=== PATIENT | male | born 1940 | race Caucasian/White ===

== ENCOUNTER 2016-08-21 17:28 | Inpatient (IN) | payer OTHER ==
--- NOTE | ~2016-08-21 | CN ---
Consultation Report [facility] [address] [place]. [address] NAME: STEPHANIE HANKINS : 39 STATUS : ADM IN PAT#: [id number] AGE: 75 ADM/REG DATE : 08/21/16 MR#: [id number] REPORT SERV DATE: 08/25/16 DICTATED BY: CRISTIN ARENAS DATE: 08/25/16 REPORT STATUS : Draft TRANSCRIBED BY: HEIDI DATE: 08/25/16 DATE OF CONSULTATION: Dear Dr. Meneses: Thank you for requesting my opinion regarding evaluation and management of Mr. Stephanie Hankins's shortness of breath and acute exacerbation of COPD. Mr. 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 The patient was recently underwent an echocardiogram that demonstrated stable EF of approximately 45%. He has been aggressively diuresed without any significant improvement in his shortness of breath. He has been treated with Maxipime, bronchodilators, and steroids. The patient reports modest improvement in his shortness of breath. He now characterized it as mild in nature, well localized to the chest, nonradiating with no significant alleviating or exacerbating factors. He firmly denies any chest pain, palpitations, nausea, vomiting, diarrhea, or constipation. PAST MEDICAL HISTORY: 1. COPD, home O2 dependent, 2 L nasal cannula. 2. Mpl-lrke-vbgs smoking history, remote. 3. 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 4. Coronary artery disease, status post CABG. 5. Diabetes. 6. Hypothyroidism. 7. Hypertension. PAST SURGICAL HISTORY: 1. As above. 2. Coronary artery bypass graft surgery. 3. Cholecystectomy. ALLERGIES: COUMADIN - NAUSEA. HOME MEDICATIONS: Reviewed and located in the paper chart. FAMILY HISTORY: Cardiac issues. SOCIAL HISTORY: The patient is a minimal smoker, quit at the age of 15 for approximately ten pack years. He denies any significant alcohol or illicit drug abuse. REVIEW OF SYSTEMS: A detailed 14-point review of systems was completed. Pertinent positives and negatives are Consultation Report [facility] [address] [place] [place]. [address] NAME: STEPHANIE HANKINS : 39 STATUS : ADM IN PAT#: [id number] AGE: 75 ADM/REG DATE : 08/21/16 MR#: [id number] REPORT SERV DATE: 08/25/16 DICTATED BY: CRISTIN ARENAS DATE: 08/25/16 REPORT STATUS : Draft TRANSCRIBED BY: MODL DATE: 08/25/16 listed above. PHYSICAL EXAMINATION: VITAL SIGNS: Afebrile, T-current 97.7, pulse of 84, respiratory rate of 16, 10 L nasal cannula of 93%, blood pressure 142/68, I's and O's demonstrates -2.4636 L. LABS: Demonstrate a white count of 7.8, hemoglobin of 11, platelet count of 116. Procalcitonin of 0.18, creatinine of 1.47. Negative urine Legionella. Sputum culture demonstrates an inadequate sample. IMAGING: Chest x-ray performed on 08/24/2016 was personally reviewed by me and I agree with the following interpretation. Cardiomegaly, bibasilar atelectasis, venous congestion is markedly improved. ASSESSMENT AND PLAN: Mr. 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 The patient has been aggressively diuresed and is stagnated requiring high levels of FiO2, now currently on 10 L nasal cannula. I have been asked to help optimize his pulmonary status. The clinical and radiographic presentation is most consistent with multifactorial shortness of breath due to the followin. Acute exacerbation of chronic obstructive pulmonary disease. 2. 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 3. Troponin leak likely due to demand ischemia, current EF of approximately 45%. 4. Acute systolic heart failure. RECOMMENDATIONS: A summary of my recommendations are as follows: 1. Continue aggressive diuresis. 2. Change bronchodilators to Brovana, Pulmicort, and DuoNeb as scheduled and p.r.n. 3. CT scan of the chest to better elucidate the underlying causes of shortness of breath. 4. Further recommendations to follow pending CT scan. 5. Plan was discussed with Dr. Meneses and Dr. Melgoza, is covering for Dr. Ortiz. Thank you for allowing me to participate in Mr. Hankins's care. EDUARDO/HEIDI Crsitin Arenas M.D. Consultation Report [address] [place]. [address] NAME: STEPHANIE HANKINS : 39 STATUS : ADM IN PAT#: [id number] AGE: 75 ADM/REG DATE : 08/21/16 MR#: [id number] REPORT SERV DATE: 08/25/16 DICTATED BY: CRISTIN ARENAS DATE: 08/25/16 REPORT STATUS : Draft TRANSCRIBED BY: HEIDI DATE: 08/25/16 / [id number] CC: Yahir Meneses M.D.
--- NOTE | ~2016-08-21 | DS ---
Discharge Summary [facility] [address] [facility] [place]. [address] NAME: STEPHANIE YEE : 39 STATUS : ADM IN [facility]#: [id number] AGE: 75 ADM/REG DATE : 08/21/16 MR#: [id number] REPORT SERV DATE: 08/27/16 DICTATED BY: ARNAUD WHARTON DATE: 08/27/16 REPORT STATUS : Draft TRANSCRIBED BY: MODL DATE: 08/27/16 ADMISSION DATE: 08/21/2016 DISCHARGE DATE: CURRENT HOSPITAL DIAGNOSES: 1. Pneumonia, resolving. 2. Chronic obstructive pulmonary disease. 3. History of coronary artery disease, atrial flutter, and congestive heart failure with acute on chronic systolic congestive heart failure. 4. Diabetes mellitus. CONSULTATIONS: Dr. Arredondo, Pulmonary and Dr. Melgoza, Cardiology. PROCEDURES: Echocardiogram showing mild mitral annular calcification, mild mitral insufficiency, left ventricular function showing hypokinesis, anterior and septal negron. Function is EF 55%. CURRENT PHYSICAL FINDINGS AND HPI: Please see dictated H and P by myself. In brief, the patient is a very pleasant 75-year-old male with above medical history, presented as referral from outside facility for pneumonia, elevated BNP, and increasing oxygen demand. Initial vital signs, BP was 142/91, temperature was 97.7, and he has remained afebrile through his hospital stay. Heart rates have been in the 70s and sinus rhythm. Oxygen requirements have been anywhere from 4-10 L. LABORATORY DATA: Initial BMP showed a creatinine of 1.69, creatinines have been averaging approximately 1.3 to 1.5 with diuresis. Initial troponin was 0.07, 0.07, and 0.10. TSH was normal at 2.6. A1c was 7.5. Initial BNP from outside facility was over 1000, repeat here was 657, and most recently 191. No leukocytosis was noted and his procalcitonin was 0.18. White count was 7.8. Strep pneumo was negative. Legionella was negative. Sputum is normal yanna to date. Blood cultures are negative to date. Initial chest x-ray done here on the , showed CHF pattern with followup on the showing improvement of the venous congestion. HOSPITAL COURSE: The patient was admitted and started on supplemental O2 breathing treatments, home medications, and antibiotics specifically Levaquin IV. He is placed on sliding scale. He was started on IV steroids, and serial troponins were followed. The patient initially was improving on that treatment regimen with the addition of IV diuretics and was maintaining his oxygen saturations on approximately 4 L. He then had acute increase in his oxygen demands, although he was relatively asymptomatic, and they were titrated up to 10 L. He was placed back on IV diuretics, IV steroids. His antibiotics were broadened to cefepime. Repeat procalcitonin and BNP were checked, and when he continued to maintain high oxygen requirements, Pulmonary was consulted. Several slight adjustments to his medications were made. He has been titrated down to 7 L at present. With his elevated troponin and history of CHF, echocardiogram was ordered and Cardiology was consulted. No new recommendations. The patient has remained asymptomatic and has not had chest pain. His current disposition, we will decrease his diuretics this evening putting him back on his Discharge Summary [address] [address] NAME: STEPHANIE YEE : 39 STATUS : ADM IN [facility]#: [id number] AGE: 75 ADM/REG DATE : 08/21/16 MR#: [id number] REPORT SERV DATE: 08/27/16 DICTATED BY: ARNAUD WHARTON DATE: 08/27/16 REPORT STATUS : Draft TRANSCRIBED BY: MODL DATE: 08/27/16 p.o. dose of diuretics as his creatinine has risen to 1.28 and his BUN 71, his BNP is down to 191, and last chest x-ray did show improved failure. Will continue to ambulate. We will continue to titrate his insulin to his steroids. He may be a candidate for V/Q scan as recommended by Dr. Marcial if his O2 requirements do not decrease. DICTATED BY: Maria Elena Leonardo/HEIDI Arnaud Wharton M.D. / [id number] CC: Arnaud Wharton M.D.
--- NOTE | ~2016-08-21 | CN ---
Consultation Report [facility] [address] [place]. [address] NAME: STEPHANIE YEE : 39 STATUS : ADM IN [facility]#: [id number] AGE: 75 ADM/REG DATE : 08/21/16 MR#: [id number] REPORT SERV DATE: 08/25/16 DICTATED BY: JONI MELGOZA DATE: 08/25/16 REPORT STATUS : Draft TRANSCRIBED BY: MODL DATE: 08/25/16 CARDIOLOGY CONSULTATION DATE OF CONSULTATION: HISTORY OF PRESENT ILLNESS: The patient is a 75-year-old white male, who is status post coronary artery bypass surgery about eight years ago. He had a cardiac catheterization by Dr. Ortiz on 09/12/2015 that showed patent grafts. Echocardiogram done today shows left ventricular ejection fraction of approximately 45% (not much changed from previous study). The patient presented to [facility] complaining of increased shortness of breath and a productive cough over the past week. He was subsequently transferred to [facility]. PAST MEDICAL HISTORY: Remarkable for coronary artery disease, COPD, type 2 diabetes, hypothyroidism, and atrial flutter. 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 FAMILY HISTORY: Negative for coronary artery disease. REVIEW OF SYSTEMS: The patient has cough productive of yellow sputum. He is not having any nausea, vomiting, diarrhea, or dysuria. PHYSICAL EXAMINATION: GENERAL: The patient is comfortable, in no acute distress. HEENT: Unremarkable. NECK: Shows no jugular venous distention with good carotid upstroke. CHEST: Clear. CARDIOVASCULAR: The PMI is just lateral to mid clavicular line. S1 is normal. S2 is narrowly split. 1/6 systolic murmur is present over the aortic area. No gallop is heard. ABDOMEN: Soft, nontender with normal bowel sounds. EXTREMITIES: Show no cyanosis, clubbing, or edema. SKIN: Warm and dry with no pallor or icterus. NEURO/PSYCH: The patient is oriented x3 with appropriate affect. IMPRESSION: 1. Stable cardiac status with hzlg-gc-snnffqoy decrease in left ventricular systolic function and patent grafts on cardiac catheterization done 09/12/2015. 2. Chronic obstructive pulmonary disease. 3. Type 2 diabetes. 4. History of paroxysmal atrial fibrillation. PLAN: 1. Continue present medications. Consultation Report [facility] [address]. [address] NAME: STEPHANIE YEE : 39 STATUS : ADM IN PAT#: [id number] AGE: 75 ADM/REG DATE : 08/21/16 MR#: [id number] REPORT SERV DATE: 08/25/16 DICTATED BY: JONI MELGOZA DATE: 08/25/16 REPORT STATUS : Draft TRANSCRIBED BY: MODL DATE: 08/25/16 2. We will follow. Thank you very much for this consultation. SS/EHIDI Joni Melgoza M.D., F.A.C.C. / [id number] CC: Yahir Meneses M.D.
--- NOTE | ~2016-08-21 | HP ---
History And Physical [place] [id number] [place]. [address] NAME: STEPHANIE YEE : 39 STATUS : ADM IN PAT#: [id number] AGE: 75 ADM/REG DATE : 08/21/16 MR#: [id number] REPORT SERV DATE: 08/21/16 DICTATED BY: YAHIR WHARTON DATE: 08/21/16 REPORT STATUS : Draft TRANSCRIBED BY: MODL DATE: 08/21/16 DATE OF ADMISSION: 08/21/2016 CHIEF COMPLAINT: COPD exacerbation. HISTORY OF PRESENT ILLNESS: The patient is a 75-year-old male. He has a past medical history significant for COPD, O2 dependent, usually 2 L, very remote minimal smoking history. His COPD risk factor appears to be occupation. 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 He also has history of coronary artery disease, status post CABG. Records review here states that he had atrial flutter in the past and was on oral anticoagulants. They are not listed on his home medications or current. He also has had a repeat heart catheterization in 08/2015 which showed widely patent grafts. He had an echo showing an EF of 40% back in 04/2014. He reports history of diabetes. States he normally manages with injections, again, not on his home list. He states he has hypothyroidism, it is noted he is on a thyroid replacement and he has hypertension. His current complaint is increasing shortness of breath over the past two to three days associated with cough, productive white mostly to yellow phlegm, fever at home which is not recurrent here. He was initially evaluated at [facility] and requested admission here with diagnosis of community-acquired pneumonia and COPD exacerbation. Currently, his sats are 94% on 4 L and his vital signs are stable. He reports no nausea or vomiting. He reports no chest pain or palpitation or anything that would suggest his problems rather than pulmonary this evening. PAST MEDICAL HISTORY: As covered above. PAST SURGICAL HISTORY: He states he has had a CABG and a cholecystectomy. CURRENT MEDICATIONS: Per [facility] list, Coreg 6.25 b.i.d., potassium 10 b.i.d., Entresto 49/59 b.i.d., allopurinol 300, aspirin 81, Bumex 1 b.i.d., digoxin 0.125, levothyroxine 0.88, Cardizem 180, isosorbide 60, and Zocor 10. Again, I do not see an anticoagulant or an insulin on this list. ALLERGIES: TO COUMADIN THAT CAUSED HIM NAUSEA. FAMILY HISTORY: Both parents ; father with cardiac problems, mother was killed in a flood. SOCIAL HISTORY: He was a minimal smoker, quit at age 15. No EtOH. REVIEW OF SYSTEMS: HEENT: No complaints. CARDIOVASCULAR: No chest pain, angina, palpitations, or syncope. PULMONARY: As covered in HPI. GI: No nausea, vomiting, or diarrhea. : No dysuria, frequency, or urgency. NEURO/MUSCULOSKELETAL: No myalgias. Neurological exam, no complaints. History And Physical [address] [address] NAME: STEPHANIE YEE : 39 STATUS : ADM IN [facility]#: [id number] AGE: 75 ADM/REG DATE : 08/21/16 MR#: [id number] REPORT SERV DATE: 08/21/16 DICTATED BY: YAHIR WHARTON DATE: 08/21/16 REPORT STATUS : Draft TRANSCRIBED BY: HEIDI DATE: 08/21/16 Otherwise, 10-point review of systems is negative. PHYSICAL EXAMINATION: VITAL SIGNS: BP 142/91, sat 94% on 4 L, heart rate 87, temp is pending. GENERAL: He is awake, alert, and oriented. HEENT: Normocephalic, atraumatic. Sclerae nonicteric. NECK: Supple. HEART: Regular rate and rhythm. LUNGS: Show some rhonchi in the left base but positive air movement, some expiratory wheezing. He does not appear in any acute distress. ABDOMEN: Nontender, nondistended. EXTREMITIES: Trace to 1+ edema. NEUROLOGIC: Grossly intact. LABORATORY DATA: As reviewed from [facility], chest x-ray was read as left lower lobe infiltrate, cardiomegaly with mild pulmonary vascular congestion. Digoxin 0.3. Sodium 135, potassium 4.5, chloride 109, CO2 of 17, BUN and creatinine are 35 and 1.5, glucose 180. White count 7.2, H and H 12.6 and 38.8, platelets 127. Lactic acid 1.5. Troponin 0.04. EKG shows no acute ischemic changes; sinus rhythm. BNP was 2390. ASSESSMENT: 1. Pneumonia. 2. Chronic obstructive pulmonary disease exacerbation. 3. Chronic medical problems including diabetes, cardiac. PLAN: 1. The patient has been admitted. 2. Review his home medications when Pharmacy completes. 3. Sliding scale for his insulin cover. 4. Antibiotics, nebulizers, and steroids. 5. Mild diuresis. 6. Further recommendations pending above. TLF/MODL Yahir Wharton M.D. / [id number] CC: Yahir Wharton M.D.
--- NOTE | ~2016-08-21 | DS ---
Discharge Summary [facility] [address] [place]. [address] NAME: STEPHANIE YEE : 39 STATUS : DIS IN PAT#: [id number] AGE: 75 ADM/REG DATE : 08/21/16 MR#: [id number] REPORT SERV DATE: 09/02/16 DICTATED BY: NAIMA COLLAZO DATE: 09/01/16 REPORT STATUS : Draft TRANSCRIBED BY: MODL DATE: 09/01/16 ADMISSION DATE: 08/21/2016 DISCHARGE DATE: 09/01/2016 DISCHARGE DIAGNOSES: 1. Pneumonia. 2. Chronic obstructive pulmonary disease exacerbation. 3. Coronary artery disease with atrial flutter, congestive heart failure, acute on chronic systolic heart failure. 4. Diabetes type 2. 5. Acute on chronic hypoxic respiratory failure. 6. Atrial fibrillation, on beta-pearl, calcium channel pearl and digoxin. No anticoagulation candidate due to fall history per prior notes. 7. Hypothyroidism. CONSULTATIONS: Dr. Melgoza and Dr. Arredondo. Please see H and P for complete details of HPI and initial discharge summary on 08/27/[address] Meneses. The patient was actually discharged on 09/01/2016, as the patient had acute change in respiratory status requiring increased O2 requirements on the . Briefly, the patient is a very pleasant 75-year-old male, O2 dependent on 2 L by nasal cannula at home, who presented after having acute COPD exacerbation, pneumonia and what appeared to be volume overload with heart failure exacerbation. The patient was treated supportively for acute COPD vascular exacerbation with steroids, DuoNebs, O2, and was aggressively diuresed but had variable O2 requirements up to 10 L at times. BMP did show improvement after patient was improved on respiratory status or on volume status. The patient was evaluated by Cardiology. Pulmonary also recommended V/Q scan which was low probability. An ultrasound of the lower extremities was also performed, which was negative due to patient's repeat increased O2 requirements. The patient has had serial chest x-rays with fibrotic lung disease consideration prompting CT without contrast, which showed areas of minimal interstitial infiltrate primarily in the peripheral lung superimposed with previous reticular fibrotic opacity. No focal consolidations, granulomatous calcifications, prior CABG history. The patient was also monitored closely with blood sugars, as the patient was being weaned off the steroids did have elevations in blood sugars, but these were also improved with weaning of blood sugars to the point where the patient was also even on his home dose insulin was having lows with diet control. The patient was decreased on home insulin and to be monitored closely with his PCP as well as the patient was educated on diet education. The patient's O2 status remained from 2-4 L. The patient was given ICS flutter valve with technics, had completed antibiotic course while inpatient, fairly euvolemic, and was continued on beta-pearl, aspirin, statin, and Entresto per Cardiology. Was discharged home with family and continued O2 as he was prior with mildly increased requirements varying from 2-4 L. Comfortably walking 200 feet without difficulty while he is on oxygen. Had declined home health that was offered for discharge per Case Management. The patient was discharged home, feeling well and feeling safe, and very eager to go home. All questions have been answered to the patient at bedside. Discharge Summary [address] [place]. [address] NAME: STEPHANIE YEE : 39 STATUS : DIS IN PAT#: [id number] AGE: 75 ADM/REG DATE : 08/21/16 MR#: [id number] REPORT SERV DATE: 09/02/16 DICTATED BY: NAIMA COLLAZO DATE: 09/01/16 REPORT STATUS : Draft TRANSCRIBED BY: HEIDI DATE: 09/01/16 DISCHARGE MEDICATIONS: Include allopurinol 300 mg one tab p.o. daily, aspirin home dose was 325 mg one tab p.o. daily, Bumex 1 mg p.o. b.i.d., Coreg 6.25 mg one tab p.o. b.i.d., digoxin 0.125 mg one tab p.o. daily, Cardizem 180 mg one tab p.o. daily. The patient's home sliding scale insulin was resumed. Lantus was decreased from 40 units at bedtime to 25 units, followup PCP before restarting regular dose. Imdur 60 mg one tab p.o. daily, Xalatan one drop ophthalmic b.i.d. eyes, levothyroxine 88 mcg p.o. daily, Entresto one tab p.o. b.i.d., Zocor 10 mg one tab p.o. at bedtime, Pulmicort two puffs inhalation, Anoro Ellipta one inhalation daily, Zanaflex home dose 2 mg p.o. b.i.d. p.r.n. muscle spasm, [place] 7.5/325 one tab p.o. q.12 hours p.r.n. pain, ProAir one puff inhalation every 4 hours for pain, nebulizers home dose solutions, KCl decreased to 10 mEq daily. The patient to followup with PCP in one week for diabetes, COPD. Followup chest x-ray for pneumonia. Additionally, followup with Dr. Jeffrey, Pulmonology in one month. Followup with Dr. Melgoza in four to six weeks. Thank for allowing us to assist in the care of this patient. DICTATED BY: MD ISHA Levy/HEIDI Naima Collazo MD / [id number] CC: Naima Collazo MD
[~2016-08-21 17:28] MED LIST: ASA5GR PO; CENTRUM TAB1 TAB PO; ELIQUIS 5 MG TAB5 MG PO; GLUCOPHAGE1000 MG PO; L40 PO; NORCO1 TAB PO; NOVOLOG SQ; PRIN20 PO; PROVENTSOL INH; ZANTAC300 MG PO
[2016-08-21 20:36] LABS: TROPONIN I 0.07 NG/ML (<0.05); ULTRASENSITIVE TSH 2.63 MCIU/ML (0.358-3.740)
[2016-08-21 21:25] LABS: PROCALCITONIN 0.41 ng/mL (<0.5)
[2016-08-21] MEDS ORDERED: ASABAYER PO (21:40)
[2016-08-21] MEDS ORDERED: *UNABLE1 (21:41)
[2016-08-21] MEDS ORDERED: COREG6 PO (22:26)
[2016-08-21] MEDS ORDERED: Z300 PO (22:26)
[2016-08-21] MEDS ORDERED: LAN125 PO (22:27)
[2016-08-21] MEDS ORDERED: KLOR-CON 1010 MEQ PO (22:27)
[2016-08-21] MEDS ORDERED: LEVOTHYROXIN88 MCG PO (22:28)
[2016-08-21] MEDS ORDERED: SACU1TAB7 PO (22:29)
[2016-08-21] MEDS ORDERED: ZOCOR10 PO (22:30)
[2016-08-21] MEDS ORDERED: CARDCD180 PO (22:30)
[2016-08-21] MEDS ORDERED: BUM1 PO (22:30)
[2016-08-21] MEDS ORDERED: IMDUR60 PO (22:30)
[2016-08-21] MEDS ORDERED: LANTUS SC (22:41)
[2016-08-21] MEDS ORDERED: NOVOLOG SC (22:41)
[2016-08-22 01:38] LABS: CALCIUM, SERUM 8.5 MG/DL (8.5-10.4); CHLORIDE, SERUM 112 MMOL/L (96-112); CO2 (CARBON DIOXIDE) 21 MMOL/L (24-34); CREATININE 1.69 MG/DL (0.70-1.30); GFR AFRICAN AMERICAN 45 ML/MIN (>=60); GFR NON AFRICAN AMERICAN 39 ML/MIN (>=60); POTASSIUM, SERUM 5.3 MMOL/L (3.5-5.3); SODIUM, SERUM 141 MMOL/L (135-148)
[2016-08-22 01:45] LABS: BUN (BLOOD UREA NITROGEN) 38 MG/DL (6-23); GLUCOSE, SERUM 366 MG/DL (60-99)
[2016-08-22] MEDS ORDERED: [UNRECOGNIZED DRUG - OTHER] (11:13)
[2016-08-22] MEDS ORDERED: [UNRECOGNIZED DRUG - OTHER] (11:13)
[2016-08-22] MEDS ORDERED: COREG6 PO (11:14)
[2016-08-22] MEDS ORDERED: PROAIR HFA INH (11:14)
[2016-08-22] MEDS ORDERED: ANOROELLIPTA INH (11:14)
[2016-08-22] MEDS ORDERED: BUM1 PO (11:14)
[2016-08-22] MEDS ORDERED: NOVOLOG SC (11:15)
[2016-08-22] MEDS ORDERED: Z300 PO (11:15)
[2016-08-22] MEDS ORDERED: PULMICORT180 MCG INH (11:15)
[2016-08-22] MEDS ORDERED: CARDCD180 PO (11:16)
[2016-08-22] MEDS ORDERED: NORCO1 TA2 PO (11:16)
[2016-08-22] MEDS ORDERED: K-TABS10 MEQ PO (11:16)
[2016-08-22] MEDS ORDERED: LAN125 PO (11:17)
[2016-08-22] MEDS ORDERED: XALAT OPH (11:17)
[2016-08-22] MEDS ORDERED: ZANAFLEX2 MG PO (11:17)
[2016-08-22] MEDS ORDERED: SACU1TAB4 PO (11:17)
[2016-08-22] MEDS ORDERED: LEVOTHYROXIN88 MCG PO (11:18)
[2016-08-22] MEDS ORDERED: ASABAYER PO (11:18)
[2016-08-22] MEDS ORDERED: ZOCOR10 PO (11:18)
[2016-08-22] MEDS ORDERED: IMDUR60 PO (11:18)
[2016-08-22] MEDS ORDERED: LANTUS SC (11:18)
[2016-08-23 05:04] LABS: BASOPHILS 0 %; EOSINOPHILS 0 %; HEMOGLOBIN 11.5 g/dL (13.6-17.8); IMMATURE GRANULOCYTES 0.3 %; IMMATURE GRANULOCYTES ABSOLUTE 0.02 10/3/uL (0.0-0.11); LYMPHOCYTES 4.3 %; LYMPHOCYTES ABSOLUTE 0.34 10/3/uL (0.67-4.30); MEAN CORPUSCULAR HEMOGLOB 34.2 pg (26.0-34.0); MEAN PLATELET VOLUME 10.4 fL (9.2-13.0); MONOCYTES 2.2 %; MONOCYTES ABSOLUTE 0.17 10/3/uL (0.21-1.20); NEUTROPHILS 93.2 %; NEUTROPHILS ABSOLUTE 7.29 10/3/uL (2.02-8.40); PLATELET COUNT 116 10/3/uL (150-400); RBC DISTRIBUTION WIDTH 15.3 % (12.0-16.0); WHITE BLOOD CELLS 7.8 10/3/uL (4.5-10.5)
[2016-08-23 05:07] LABS: HEMATOCRIT 34.9 % (40.0-51.0); MANUAL DIFF NO %; MEAN CORPUSCULAR VOLUME 103.9 fL (80-100); RED CELL COUNT 3.36 10/6/uL (4.7-6.1)
[2016-08-23 05:15] LABS: BUN (BLOOD UREA NITROGEN) 48 MG/DL (6-23); CALCIUM, SERUM 8.9 MG/DL (8.5-10.4); CHLORIDE, SERUM 113 MMOL/L (96-112); CO2 (CARBON DIOXIDE) 19 MMOL/L (24-34); CREATININE 1.47 MG/DL (0.70-1.30); GFR AFRICAN AMERICAN 53 ML/MIN (>=60); GFR NON AFRICAN AMERICAN 46 ML/MIN (>=60); GLUCOSE, SERUM 252 MG/DL (60-99); POTASSIUM, SERUM 5.4 MMOL/L (3.5-5.3); SODIUM, SERUM 141 MMOL/L (135-148)
[2016-08-24 06:24] LABS: CALCIUM, SERUM 8.4 MG/DL (8.5-10.4); CHLORIDE, SERUM 111 MMOL/L (96-112); CREATININE 1.53 MG/DL (0.70-1.30); GFR AFRICAN AMERICAN 50 ML/MIN (>=60); GFR NON AFRICAN AMERICAN 44 ML/MIN (>=60); POTASSIUM, SERUM 4.6 MMOL/L (3.5-5.3); SODIUM, SERUM 140 MMOL/L (135-148)
[2016-08-24 06:25] LABS: BUN (BLOOD UREA NITROGEN) 59 MG/DL (6-23); CO2 (CARBON DIOXIDE) 24 MMOL/L (24-34); GLUCOSE, SERUM 142 MG/DL (60-99)
[2016-08-24 14:04] LABS: TROPONIN I 0.1 NG/ML (<0.05)
[2016-08-24 14:25] LABS: PROCALCITONIN 0.18 ng/mL (<0.5)
[2016-08-25 06:56] LABS: CALCIUM, SERUM 8.7 MG/DL (8.5-10.4); CHLORIDE, SERUM 106 MMOL/L (96-112); CO2 (CARBON DIOXIDE) 22 MMOL/L (24-34); CREATININE 1.47 MG/DL (0.70-1.30); GFR AFRICAN AMERICAN 53 ML/MIN (>=60); GFR NON AFRICAN AMERICAN 46 ML/MIN (>=60); POTASSIUM, SERUM 4.6 MMOL/L (3.5-5.3); SODIUM, SERUM 138 MMOL/L (135-148)
[2016-08-25 06:57] LABS: BUN (BLOOD UREA NITROGEN) 64 MG/DL (6-23); GLUCOSE, SERUM 352 MG/DL (60-99)
[2016-08-27 06:18] LABS: ALBUMIN 2.2 G/DL (3.5-5.0); CALCIUM, SERUM 8.6 MG/DL (8.5-10.4); CHLORIDE, SERUM 111 MMOL/L (96-112); CO2 (CARBON DIOXIDE) 21 MMOL/L (24-34); CREATININE 1.28 MG/DL (0.70-1.30); GFR AFRICAN AMERICAN 63 ML/MIN (>=60); GFR NON AFRICAN AMERICAN 54 ML/MIN (>=60); PHOSPHORUS, SERUM 2.5 MG/DL (2.5-4.5); SODIUM, SERUM 140 MMOL/L (135-148)
[2016-08-27 06:19] LABS: BUN (BLOOD UREA NITROGEN) 71 MG/DL (6-23); GLUCOSE, SERUM 186 MG/DL (60-99)
[2016-08-28 05:20] LABS: BASOPHILS 0 %; EOSINOPHILS 0.8 %; EOSINOPHILS ABSOLUTE 0.06 10/3/uL (0.0-0.53); HEMOGLOBIN 11.9 g/dL (13.6-17.8); IMMATURE GRANULOCYTES 0.7 %; IMMATURE GRANULOCYTES ABSOLUTE 0.05 10/3/uL (0.0-0.11); LYMPHOCYTES 10.2 %; LYMPHOCYTES ABSOLUTE 0.77 10/3/uL (0.67-4.30); MEAN CORPUS HGB CONC 33.1 g/dL (32.0-36.0); MEAN CORPUSCULAR HEMOGLOB 33.4 pg (26.0-34.0); MEAN CORPUSCULAR VOLUME 101.1 fL (80-100); MEAN PLATELET VOLUME 11.6 fL (9.2-13.0); MONOCYTES ABSOLUTE 0.53 10/3/uL (0.21-1.20); NEUTROPHILS 81.3 %; NEUTROPHILS ABSOLUTE 6.16 10/3/uL (2.02-8.40); PLATELET COUNT 145 10/3/uL (150-400); RBC DISTRIBUTION WIDTH 14.9 % (12.0-16.0); RED CELL COUNT 3.56 10/6/uL (4.7-6.1); WHITE BLOOD CELLS 7.6 10/3/uL (4.5-10.5)
[2016-08-28 05:21] LABS: MANUAL DIFF NO %
[2016-08-28 05:32] LABS: BUN (BLOOD UREA NITROGEN) 66 MG/DL (6-23); CALCIUM, SERUM 8.5 MG/DL (8.5-10.4); CHLORIDE, SERUM 107 MMOL/L (96-112); CO2 (CARBON DIOXIDE) 25 MMOL/L (24-34); CREATININE 1.16 MG/DL (0.70-1.30); GFR AFRICAN AMERICAN 71 ML/MIN (>=60); GFR NON AFRICAN AMERICAN 61 ML/MIN (>=60); GLUCOSE, SERUM 195 MG/DL (60-99); POTASSIUM, SERUM 4.1 MMOL/L (3.5-5.3); SODIUM, SERUM 137 MMOL/L (135-148)
[2016-08-29 05:08] LABS: BASOPHILS 0 %; EOSINOPHILS 1.7 %; EOSINOPHILS ABSOLUTE 0.12 10/3/uL (0.0-0.53); HEMATOCRIT 37.2 % (40.0-51.0); HEMOGLOBIN 12.2 g/dL (13.6-17.8); IMMATURE GRANULOCYTES 0.9 %; IMMATURE GRANULOCYTES ABSOLUTE 0.06 10/3/uL (0.0-0.11); LYMPHOCYTES 12.9 %; LYMPHOCYTES ABSOLUTE 0.91 10/3/uL (0.67-4.30); MANUAL DIFF NO %; MEAN CORPUS HGB CONC 32.8 g/dL (32.0-36.0); MEAN CORPUSCULAR HEMOGLOB 33.3 pg (26.0-34.0); MEAN CORPUSCULAR VOLUME 101.6 fL (80-100); MONOCYTES 7.8 %; MONOCYTES ABSOLUTE 0.55 10/3/uL (0.21-1.20); NEUTROPHILS 76.7 %; NEUTROPHILS ABSOLUTE 5.41 10/3/uL (2.02-8.40); PLATELET COUNT 150 10/3/uL (150-400); RBC DISTRIBUTION WIDTH 14.9 % (12.0-16.0); RED CELL COUNT 3.66 10/6/uL (4.7-6.1); WHITE BLOOD CELLS 7.1 10/3/uL (4.5-10.5)
[2016-08-29 05:20] LABS: BUN (BLOOD UREA NITROGEN) 69 MG/DL (6-23); CALCIUM, SERUM 8.4 MG/DL (8.5-10.4); CHLORIDE, SERUM 108 MMOL/L (96-112); CO2 (CARBON DIOXIDE) 26 MMOL/L (24-34); GFR AFRICAN AMERICAN 68 ML/MIN (>=60); GFR NON AFRICAN AMERICAN 58 ML/MIN (>=60); POTASSIUM, SERUM 4.3 MMOL/L (3.5-5.3); SODIUM, SERUM 141 MMOL/L (135-148)
[2016-08-29 05:21] LABS: GLUCOSE, SERUM 139 MG/DL (60-99)
[2016-08-30 06:12] LABS: BASOPHILS 0 %; EOSINOPHILS 1.8 %; EOSINOPHILS ABSOLUTE 0.15 10/3/uL (0.0-0.53); HEMATOCRIT 37.5 % (40.0-51.0); HEMOGLOBIN 12.3 g/dL (13.6-17.8); IMMATURE GRANULOCYTES ABSOLUTE 0.08 10/3/uL (0.0-0.11); LYMPHOCYTES 12.8 %; LYMPHOCYTES ABSOLUTE 1.06 10/3/uL (0.67-4.30); MEAN CORPUS HGB CONC 32.8 g/dL (32.0-36.0); MEAN CORPUSCULAR HEMOGLOB 33.6 pg (26.0-34.0); MEAN CORPUSCULAR VOLUME 102.5 fL (80-100); MEAN PLATELET VOLUME 10.4 fL (9.2-13.0); MONOCYTES 8.1 %; MONOCYTES ABSOLUTE 0.67 10/3/uL (0.21-1.20); NEUTROPHILS 76.3 %; NEUTROPHILS ABSOLUTE 6.29 10/3/uL (2.02-8.40); PLATELET COUNT 143 10/3/uL (150-400); RED CELL COUNT 3.66 10/6/uL (4.7-6.1); WHITE BLOOD CELLS 8.3 10/3/uL (4.5-10.5)
[2016-08-30 06:14] LABS: MANUAL DIFF NO %
[2016-08-30 06:22] LABS: BUN (BLOOD UREA NITROGEN) 71 MG/DL (6-23); CALCIUM, SERUM 8.6 MG/DL (8.5-10.4); CHLORIDE, SERUM 107 MMOL/L (96-112); CO2 (CARBON DIOXIDE) 26 MMOL/L (24-34); CREATININE 1.19 MG/DL (0.70-1.30); GFR AFRICAN AMERICAN 68 ML/MIN (>=60); GFR NON AFRICAN AMERICAN 59 ML/MIN (>=60); POTASSIUM, SERUM 4.2 MMOL/L (3.5-5.3); SODIUM, SERUM 136 MMOL/L (135-148)
[2016-08-30 06:23] LABS: GLUCOSE, SERUM 86 MG/DL (60-99)
== END 2016-09-01 13:36 | disposition home or self-care (01) | DRG 189 ==
LOC: 2SO 17:28
PROVIDERS: Internal Medicine; Student in an Organized Health Care Education/Training Program
DX: J96.21 Acute and chronic respiratory failure with hypoxia (principal); J18.9 Pneumonia, unspecified organism; I50.23 Acute on chronic systolic (congestive) heart failure; I48.92 Unspecified atrial flutter; I24.8 Other forms of acute ischemic heart disease; Z99.81 Dependence on supplemental oxygen; I48.91 Unspecified atrial fibrillation; J44.0 Chronic obstructive pulmonary disease with (acute) lower respiratory infection; J44.1 Chronic obstructive pulmonary disease with (acute) exacerbation; I34.0 Nonrheumatic mitral (valve) insufficiency; E11.9 Type 2 diabetes mellitus without complications; J61 Pneumoconiosis due to asbestos and other mineral fibers; I25.10 Atherosclerotic heart disease of native coronary artery without angina pectoris; E03.9 Hypothyroidism, unspecified; Z95.1 Presence of aortocoronary bypass graft; Z88.8 Allergy status to other drugs, medicaments and biological substances; Z82.49 Family history of ischemic heart disease and other diseases of the circulatory system; Z87.891 Personal history of nicotine dependence; Z98.890 Other specified postprocedural states
CPT/HCPCS: 71010; 71020; 71250; 78582; 80048; 80069; 82533; 82962; 83036; 83735; 83880; 84145; 84443; 84484; 85025; 85652; 87040; 87070; 87205; 87449; 93005; 93306; 93970; 94640; 94667; 97161-GP; A9270-GY; A9540; A9567; G8978-CH-GP; G8979-CH-GP; G8980-CH-GP; J0692; J1956; J2920; J2930